=== PATIENT | male | born 1950 | race Caucasian/White ===

== ENCOUNTER → 2019-12-17 | Outpatient (CLI) | payer MEDICARE, OTHER, SELFPAY ==
[2019-12-07 14:23] VITALS: BMI 29.6
[2019-12-17 12:29] LABS: ALB/GLOB Ratio 1.1 RATIO (0.9-2.4); AST(SGOT) 18 U/L (15-37); Alanine Aminotransfer ALT/SGPT 31 U/L (16-61); Albumin, Serum 3.7 g/dL (3.2-5.0); Alkaline Phosphatase 63 U/L (45-117); Anion Gap 6 (5-15); BUN 13 mg/dL (7-18); BUN/Creat Ratio 12.7 RATIO (10-20); Calcium,Total 8.9 mg/dL (8.5-10.1); Chloride 106 mmol/L (98-107); Cholesterol 177 mg/dL (200); Creatinine, Serum 1.02 mg/dL (0.70-1.30); EST Glomerular Filtration Rate 77 mL/min (>60); Est Glom Filt Rate - Afr Amer 94 mL/min (>60); Globulin 3.5 g/dL (2.2-4.2); Glucose 95 mg/dL (74-106); High Density Lipoprotein 48 mg/dL; PSA,Total - Annual Screen 1.59 ng/mL (0.00-4.00); Potassium 3.8 mmol/L (3.5-5.1); Protein, Total 7.2 g/dL (6.4-8.2); Sodium Level 139 mmol/L (136-145); Triglycerides 196 mg/dL; Uric Acid 3.6 mg/dL (3.5-7.2); Very Low Density Lipoprotein 39 mg/dL (5-40)
== END | disposition home or self-care (01) ==
LOC: BIMLAB 10:51
PROVIDERS: PCP Internal Medicine; Referring Provider Internal Medicine; Visit Provider Internal Medicine
DX: E78.5 Hyperlipidemia, unspecified (principal); I10 Essential (primary) hypertension; M10.9 Gout, unspecified; Z12.5 Encounter for screening for malignant neoplasm of prostate
CPT/HCPCS: 36415; 80053; 80061; 84153; 84550; G0103

== ENCOUNTER 2020-06-10 08:42 | Day surgery (SDC) | payer MEDICARE, OTHER, SELFPAY ==
[2020-06-06 13:53] VITALS: BMI 30.5
[2020-06-10] VITALS (8 sets, daily range): BP systolic 100–139; BP diastolic 53–88; PULSE 62–78; RESP 16; TEMP 36.1–36.7; O2SAT 95–98; BMI 31.0
--- NOTE | 2020-06-10 07:12 | HP_ITS ---
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 Is patient in pain?: No Allergies No Known Allergies Allergy (Verified 06/06/20 13:53) Medications lisinopril 10 mg-hydrochlorothiazide 12.5 mg tablet 1 tab PO DAILY #90 tab 03/14/20 [Rx Confirmed 06/06/20] valacyclovir 500 mg tablet 500 mg PO DAILY #90 tab 03/14/20 [Rx Confirmed 06/06/20] simvastatin 20 mg tablet 20 mg PO DAILY #90 tab 04/19/20 [Rx Confirmed 06/06/20] allopurinol 300 mg tablet 300 mg PO DAILY #90 tab 05/02/20 [Rx Confirmed 06/06/20] duloxetine 20 mg capsule,delayed release 20 mg PO DAILY #90 cap 05/23/20 [Rx Confirmed 06/06/20] PFS Medical History (Updated 06/06/20 @ 14:[address] Dar Stallings MD) Recurrent cold sores (Chronic) Gout (Chronic) Essential hypertension (Chronic) Other and unspecified hyperlipidemia (Chronic) Hemorrhoid (Acute) Surgical History (Updated 06/06/20 @ 13:53 by Deisy Coronado) History of colonoscopy (Acute ~2018) History of nasal surgery (Resolved) Tonsillectomy planned (Resolved) vasectomy (Resolved) Family History Other CVA (cerebral vascular accident) Cancer Myocardial infarction Social History (Updated 06/06/20 @ 14:[address] Dar Stallings MD) Smoking Status: Former smoker alcohol intake: never substance use type: does not use HPI HPI HPI: FAY BACA, is a 69 M who presents to the office today for HPI HPI Surgical H&P: Yes HPI: FAY BACA, is a 69 M who presents to the office today for diarrhea. The patient reports he has been having diarrhea for about the past month. He reports he is going several times per day and sometimes over 10 times per day. Patient reports no blood in his stool or abdominal pain. His last colonoscopy was about 3 years ago. Patient reports that he also feels like he is not able to have a bowel movement he is not having incomplete emptying bowel movement. He has no family history of colon cancer. ROS General General: No weight change, appetite, fatigue, colon cancer, breast cancer or weakness HEENT HEENT: No difficulty swallowing, eye injury, eye surgery, swollen glands or hoarseness Endo Endocrine: No thyroid disease, diabetes mellitus, thyroid cancer, Hair loss, heat intolerance or cold intolerance Musc Musculoskeletal: Yes gout; no back problems, arthritis, rheumatoid arthritis or joint pain Cardio Cardiovascular: Yes high blood pressure; no murmur, pacemaker, heart disease, atrial fibrillation, heart attack, heart stent, palpitations, shortness of breat with exertion or chest pain Psych Psychiatric: No depression, anxiety or hearing voices Resp Respiratory: No shortness of breath, No sleep apnea, Yes cough, No COPD, No asthma, No emphysema, No wheezing Gastro Gastrointestinal: Yes abdominal pain, No nausea or vomiting, Yes diarrhea, Yes constipation, No blood in stool, No acid reflux, Yes hemorrhoids, No ulcers, No gallbladder problem, No black,tarry stools Akash Hematologic: No blood thinners, No blood disorders, No bleeding, No anemia, No blood clots Neuro Neurologic: No weakness Exam Const General: cooperative Orientation: alert, oriented x3 Resp Effort & Inspection: normal respiratory effort Auscultation: clear to auscultation bilaterally Cardio Rate: regular rate Rhythm: regular rhythm Heart Sounds: no murmurs GI Inspection: non-distended Palpation: soft, nontender Assessment & Plan Problems 1. Diarrhea, unspecified type R19.7 2. Change in bowel movement R19.8 Plan The patient has been having new onset diarrhea for the past month. He reports going multiple times per day sometimes upwards of 10-11 times per day. The patient also reports he is unable to fully have a bowel movement feels like he is pushing against something. Patient is not having any abdominal pain or blood in his stool. His last colonoscopy was 3 years ago. I recommended colonoscopy with random biopsies. I explained endoscopy in detail to the patient. I explained the risks including but not limited to stroke or heart attack with anesthesia, perforation of the GI tract, bleeding, infection. I explained that any of these could necessitate further emergency surgery. The patient understands and all questions were answered sufficiently. The patient wishes to proceed with procedure. Dar Stallings MD Pager: [facility] [address] [place] [address] [address] [place] [address] Office: Orders Orders: Colonoscopy Today R19.7, R19.8 Coding Level of Care Code Off vis,new,level 3 Diagnoses Diarrhea, unspecified type R19.7 ??Diarrhea type: unspecified type Change in bowel movement R19.8 I have re-examined the patient. There are no clinical changes since date of exam.
[2020-06-10] MEDS: Lactated Ringers 1,000 ML 100 ML IV (09:21)
--- NOTE | 2020-06-10 09:45 | COLBX_PTH ---
PATIENT: FAY BACA LOC: EN U#:[id number] AGE/SX: 69/M ROOM: RE06/10/[address]: Dr. Dar Stallings MD : 1950 BED: DIS: 06/10/2020 SPEC #: [id number] RECD: 06/10/20 10:21 STATUS: RUSTY RUTH #: [id number] GUILLERMO: 06/10/20 09:[address]: Dar Stallings DEPT: SURGICAL PATHOLOGY RECD BY: Heidy Castillo ENTERED: 06/10/20 11:01 SP TYPE: COLON BX OTHR DR: Dr. Raisa Chu MD Tissues: COLON BIOPSY Procedures: Surgery Specimen Level IV HEADER OPERATION: Colonoscopy (MAC) PRE-OP DIAGNOSIS: Diarrhea, changes in bowel movement TISSUE SUBMITTED: Random colonic biopsies MICROSCOPIC DIAGNOSIS Colon, random biopsy: Focal acute colitis. See microscopic description and comment. SJ:jamal 06/13/2020 COMMENT Correlation with clinical, endoscopic findings and appropriate follow up are necessary. MICROSCOPIC DESCRIPTION Slides are reviewed. The specimen shows fragments of colonic mucosa with focal acute and chronic inflammatory cell infiltrate in the lamina propria, cryptitis and crypt abscesses. Granuloma, glandular distortion and ulcerations are not seen. The finding of focal acute colitis is usually an incidental finding. Rarely can it be associated with infectious, self-limited colitis or inflammatory bowel disease. GROSS DESCRIPTION Received in fixative is one container labeled with the patient's name and designated random colon biopsy. The specimen consists of multiple irregular fragments of light eldridge soft tissue that in aggregate measure 2.5 x 1 x 0.1 cm. The specimen is totally submitted in one cassette. / AM:jamal 06/10/20 TC:2 CPT: 43383
--- NOTE | 2020-06-10 10:03 | OP.CCLET_ITS ---
06/10/2020 Raisa Chu [facility] [address] [place] [address] Re : Colonoscopy procedure for Deejay Acosta Dear Dr. Chu This procedure was performed on Wednesday, June 10, 2020. My impressions and recommendations are as follows: Impressions : - Diffuse moderate inflammation was found in the entire examined colon secondary to colitis. Biopsied. Recommendations : - Discharge patient to home. - Resume previous diet. - Continue present medications. - Await pathology results. - Repeat colonoscopy for surveillance based on pathology results. My findings are described in the full procedure note, which is enclosed. If I can be of further assistance, please feel free to contact me at Doctor phone number(s): , Work: . Sincerely, Dar Stallings MD 06/10/2020 10:02:39 AM This report has been signed electronically.
--- NOTE | 2020-06-10 10:03 | OP.COLON_ITS ---
Patient Name: Deejay Acosta Procedure Date: 06/10/2020 9:25 AM Date of : 1950 Age: 69 Procedure: Colonoscopy Indications: Clinically significant diarrhea of unexplained origin Providers: Dar Stallings MD Referring MD: Dar Stallings MD Medicines: Monitored Anesthesia Care Patient Profile: This is a 69 year old male. Refer to note in patient chart for documentation of history and physical. Last Colonoscopy: 3 years ago. Complications: No immediate complications. Estimated blood loss: Minimal. Procedure: Pre-Anesthesia Assessment: - Prior to the procedure, a History and Physical was performed, and patient medications and allergies were reviewed. The patient's tolerance of previous anesthesia was also reviewed. The risks and benefits of the procedure and the sedation options and risks were discussed with the patient. All questions were answered, and informed consent was obtained. Prior Anticoagulants: The patient has taken no previous anticoagulant or antiplatelet agents. After reviewing the risks and benefits, the patient was deemed in satisfactory condition to undergo the procedure. After I obtained informed consent, the scope was passed under direct vision. Throughout the procedure, the patient's blood pressure, pulse, and oxygen saturations were monitored continuously. The Colonoscope was introduced through the anus and advanced to the cecum, identified by appendiceal orifice and ileocecal valve. The colonoscopy was performed without difficulty. The patient tolerated the procedure well. The quality of the bowel preparation was good. Scope In: 9:49:00 AM Scope Withdrawal Time 0 hours 6 minutes 53 seconds Scope Out: 9:59:46 AM Total Procedure Duration Time 0 hours 10 minutes 46 seconds Findings: Diffuse moderate inflammation characterized by congestion (edema) and friability was found in the entire colon. Biopsies were taken with a cold forceps for histology. Impression: - Diffuse moderate inflammation was found in the entire examined colon secondary to colitis. Biopsied. Recommendation: - Discharge patient to home. - Resume previous diet. - Continue present medications. - Await pathology results. - Repeat colonoscopy for surveillance based on pathology results. Procedure Code(s): --- Professional --- 79033, Colonoscopy, flexible; with biopsy, single or multiple Diagnosis Code(s): --- Professional --- K52.9, Noninfective gastroenteritis and colitis, unspecified R19.7, Diarrhea, unspecified CPT copyright 2017 [employer]. All rights reserved. The codes documented in this report are preliminary and upon computer language coder review may be revised to meet current compliance requirements. Dar Stallings MD 06/10/2020 10:02:39 AM This report has been signed electronically. Number of Addenda: 0 Note Initiated On: 06/10/2020 9:25 AM
== END 2020-06-10 10:48 | disposition home or self-care (01) ==
LOC: EN 08:42 → AC 08:42
PROVIDERS: PCP Internal Medicine; Referring Provider Surgery; Visit Provider Surgery
PROC: 0DJD8ZZ Inspection of Lower Intestinal Tract, Via Natural or Artificial Opening Endoscopic (ICD-10-PCS; CPT 45378; principal; 2020-06-10 09:40)
DX: K52.9 Noninfective gastroenteritis and colitis, unspecified (principal); I10 Essential (primary) hypertension; E78.5 Hyperlipidemia, unspecified; Z79.899 Other long term (current) drug therapy; Z20.822 Contact with and (suspected) exposure to COVID-19; Z87.891 Personal history of nicotine dependence
CPT/HCPCS: 45380; 87426; 88305; C9803; J7120; J2405

== ENCOUNTER 2021-05-01 08:35 | Outpatient (CLI) | payer MEDICARE, OTHER, SELFPAY ==
[2021-05-01 12:13] LABS: Absolute Lymphocyte Count 2.55 X10^3/uL (0.83-4.51); Absolute Neutrophil Count 4.6 X10^3/uL (2.0-7.7); Basophil# 0.06 X10^3/uL; Basophil% 0.7 % (0-1); Eosinophil# 0.26 X10^3/uL; Eosinophils% 3.1 % (0-5); Hematocrit 42.8 % (40-54); Hemoglobin 14.8 g/dL (13.0-16.5); Lymphocyte # 2.55 X10^3/ul (0.83-4.51); Lymphocyte % 30.7 % (19-41); Mean Corp Hgb Conc 34.6 g/dL (32-36); Mean Corpuscular Hgb 33.3 pg (27.0-32.0); Mean Corpuscular Volume 96.2 fL (80-94); Mean Platelet Vol. 10.7 fl (6.2-12.0); Monocyte# 0.76 X10^3/uL; Monocyte% 9.2 % (0-10); NRBC Flagged by Analyzer 0 % (0-5); Neutrophil # 4.63 X10^3/uL (2.7-7.7); Neutrophil % 55.8 % (47-70); Platelet Count 222 K/mm3 (150-450); RBC Distribution Width CV 13.3 % (11.6-14.6); RBC Distribution Width SD 47.1 fl (35.1-43.9); Red Blood Count 4.45 M/mm3 (4.6-6.2); White Blood Count 8.3 K/mm3 (4.4-11.0)
[2021-05-01 12:28] LABS: Uric Acid 3.8 mg/dL (3.5-7.2)
[2021-05-01 12:31] LABS: Vitamin D,25 Hydroxy 9.2 ng/mL
[2021-05-01 12:38] LABS: AST(SGOT) 30 U/L (15-37); Alanine Aminotransfer ALT/SGPT 56 U/L (16-61); Albumin, Serum 3.7 g/dL (3.2-5.0); Alkaline Phosphatase 62 U/L (45-117); Anion Gap 6 (5-15); BUN 15 mg/dL (7-18); BUN/Creat Ratio 13.4 RATIO (10-20); Calcium,Total 9.1 mg/dL (8.5-10.1); Chloride 109 mmol/L (98-107); Cholesterol 152 mg/dL (200); Creatinine, Serum 1.12 mg/dL (0.70-1.30); EST Glomerular Filtration Rate 69 mL/min (>60); Est Glom Filt Rate - Afr Amer 84 mL/min (>60); Globulin 3.6 g/dL (2.2-4.2); Glucose 109 mg/dL (74-106); High Density Lipoprotein 54 mg/dL; PSA,Total - Annual Screen 1.64 ng/mL (0.00-4.00); Potassium 3.8 mmol/L (3.5-5.1); Protein, Total 7.3 g/dL (6.4-8.2); Sodium Level 140 mmol/L (136-145); Thyroid Stim Hormone (TSH) 2.22 uIU/mL (0.358-3.74); Triglycerides 88 mg/dL; Very Low Density Lipoprotein 18 mg/dL (5-40)
== END 2021-05-01 23:59 | disposition home or self-care (01) ==
LOC: BIMLAB 08:37
PROVIDERS: PCP Internal Medicine; Referring Provider Internal Medicine; Visit Provider Internal Medicine
DX: Z12.5 Encounter for screening for malignant neoplasm of prostate (principal); I10 Essential (primary) hypertension; E78.5 Hyperlipidemia, unspecified; E55.9 Vitamin D deficiency, unspecified; M10.9 Gout, unspecified
CPT/HCPCS: 36415; 80053; 80061; 82306; 84153; 84443; 84550; 85025; G0103

== ENCOUNTER → 2022-04-19 | Outpatient (CLI) | payer MEDICARE, OTHER, SELFPAY ==
[2022-04-19 12:22] LABS: Absolute Lymphocyte Count 2.37 X10^3/uL (0.83-4.51); Absolute Neutrophil Count 5.7 X10^3/uL (2.0-7.7); Basophil# 0.06 X10^3/uL; Basophil% 0.7 % (0-1); Eosinophil# 0.22 X10^3/uL; Eosinophils% 2.4 % (0-5); Hematocrit 43.9 % (40-54); Lymphocyte # 2.37 X10^3/ul (0.83-4.51); Lymphocyte % 25.8 % (19-41); Mean Corp Hgb Conc 34.2 g/dL (32-36); Mean Corpuscular Hgb 32.8 pg (27.0-32.0); Mean Corpuscular Volume 96.1 fL (80-94); Mean Platelet Vol. 10.7 fl (6.2-12.0); Monocyte# 0.79 X10^3/uL; Monocyte% 8.6 % (0-10); NRBC Flagged by Analyzer 0 % (0-5); Neutrophil # 5.71 X10^3/uL (2.7-7.7); Neutrophil % 62.2 % (47-70); Platelet Count 229 K/mm3 (150-450); RBC Distribution Width CV 13.2 % (11.6-14.6); RBC Distribution Width SD 46.6 fl (35.1-43.9); Red Blood Count 4.57 M/mm3 (4.6-6.2); White Blood Count 9.2 K/mm3 (4.4-11.0)
[2022-04-19 12:55] LABS: Vitamin D,25 Hydroxy 12.7 ng/mL
[2022-04-19 13:00] LABS: ALB/GLOB Ratio 1.1 RATIO (0.9-2.4); AST(SGOT) 28 U/L (15-37); Alanine Aminotransfer ALT/SGPT 50 U/L (16-61); Albumin, Serum 3.9 g/dL (3.2-5.0); Alkaline Phosphatase 61 U/L (45-117); Anion Gap 9 (5-15); BUN 17 mg/dL (7-18); BUN/Creat Ratio 13.5 RATIO (10-20); Calcium,Total 9.2 mg/dL (8.5-10.1); Chloride 104 mmol/L (98-107); Cholesterol 184 mg/dL (200); Creatinine, Serum 1.26 mg/dL (0.70-1.30); EST Glomerular Filtration Rate 60 mL/min (>60); Est Glom Filt Rate - Afr Amer 73 mL/min (>60); Globulin 3.7 g/dL (2.2-4.2); Glucose 117 mg/dL (74-106); High Density Lipoprotein 59 mg/dL; Potassium 3.7 mmol/L (3.5-5.1); Protein, Total 7.6 g/dL (6.4-8.2); Sodium Level 139 mmol/L (136-145); Triglycerides 132 mg/dL; Very Low Density Lipoprotein 26 mg/dL (5-40)
== END | disposition home or self-care (01) ==
LOC: BIMLAB 09:08
PROVIDERS: PCP Internal Medicine; Referring Provider Internal Medicine; Visit Provider Internal Medicine
DX: I10 Essential (primary) hypertension (principal); E78.5 Hyperlipidemia, unspecified; E55.9 Vitamin D deficiency, unspecified; Z12.5 Encounter for screening for malignant neoplasm of prostate
CPT/HCPCS: 36415; 80053; 80061; 82306; 85025

== ENCOUNTER 2022-07-20 13:43 | Observation (INO) | payer MEDICARE, OTHER, SELFPAY ==
[2022-07-20] VITALS (7 sets, daily range): BP systolic 148–166; BP diastolic 78–90; PULSE 74–103; RESP 16–20; TEMP 35.9–36.6; O2SAT 95–99; BMI 31.8; BMI 31.3
--- NOTE | 2022-07-20 13:48 | EKG12_ITS ---
Test Reason : STROKE Blood Pressure : / mmHG Vent. Rate : 071 BPM Atrial Rate : 071 BPM P-R Int : 162 ms QRS Dur : 146 ms QT Int : 392 ms P-R-T Axes : 028 -80 018 degrees QTc Int : 425 ms Normal sinus rhythm Right bundle branch block Left anterior fascicular block Bifascicular block Abnormal ECG Confirmed by SERGE KELLY, PADMINI ([id number]), photo editor BEATRIZ LINN ([id number]) on 07/23/2022 11:29:20 AM Referred By: Confirmed By:ROSEANN VALENTINE MD
--- NOTE | 2022-07-20 13:48 | CT_ITS ---
STUDY: CT HEAD STROKE PROTOCOL W/O CONTRAST INJECTION REASON FOR EXAM: Male, 71 years old. Neuro deficit, acute, stroke suspected RADIATION DOSAGE (If Supplied By Facility): CTDIvol = ( 44.99 ) mGy, DLP = ( 846.73 ) mGycm TECHNIQUE: Transaxial CT imaging of the brain was performed without administration of intravenous contrast material. Individualized dose optimization techniques were used for this CT. COMPARISON: No relevant priors. FINDINGS: Normal soft tissue structures. Normal calvarium. Normal size ventricles and extra-axial spaces for the patient''s age. Normal white matter tracts of the cerebral hemispheres. Normal basal ganglia and thalami. Normal brainstem. Normal cerebellum. There is no intracranial hemorrhage. There are no findings of an acute ischemic infarction. Atherosclerotic plaque formation of the cavernous portions of the internal carotid arteries bilaterally as well as the vertebral arteries.. Normal visualized paranasal sinuses. ASPECT score: 10 CT/STROKE Brain/Head without Cont IMPRESSION: Normal unenhanced CT scan of the brain. N.B. : The above Results were Read Back by Darrel Rayo MD to Ho Farley and understanding confirmed on 07/20/2022 14:04:26 (ET). Electronically Signed: Darrel Rayo MD at 14:05 EDT ,
--- NOTE | 2022-07-20 13:53 | EDS_ITS ---
HPI History of Present Illness Chief Complaint: Neuro S/Sx Detail of Chief Complaint: Expressive aphasia, numbness right upper extremity and slurring of his word Informant: patient and family Onset/Context/Timing Onset: Hours (Onset 1248) Context: Sudden Onset Timing: Intermittent Quality and Location: Positive for Expressive Aphasia Onset: 1248 Current Severity: Mild Maximum Severity: Moderate Worsened by: Nothing Relieved by: Not applicable Associated Symptoms Associated Symptoms: Positive for Headache; Negative for Nausea, Vomiting or Chest Pain Narrative Narrative: Patient is a 71-year-old male with history of hypertension and gout who presents with trouble speaking. He states he was reading and unable to speak to the gentleman he was talking to. He also complained of numbness right upper extremity and when he was able to speak his words were slurred. He was brought in by his sister. His sister states he has had a couple of these episodes in the past several years but never sought medical attention. Review of prior records indicates he has history of hypercholesterolemia. He is on simvastatin. Prior similar symptoms: Yes Recent Illness/Hospitalization: No PFSH PFSH Medical History Essential hypertension Gout Hemorrhoid Other and unspecified hyperlipidemia Recurrent cold sores Home Medications simvastatin 20 mg tablet 20 mg PO DAILY #90 tabs 02/03/21 [Rx Last Taken Unknown] allopurinol 300 mg tablet 300 mg PO DAILY #90 tabs 11/22/21 [Rx Last Taken Unknown] duloxetine 20 mg capsule,delayed release 20 mg PO DAILY #90 caps 11/22/21 [Rx Last Taken Unknown] lisinopril 10 mg-hydrochlorothiazide 12.5 mg tablet 1 tab PO DAILY #90 tabs 05/22/22 [Rx Last Taken Unknown] valacyclovir 500 mg tablet 500 mg PO DAILY #90 tabs 05/22/22 [Rx Last Taken Unknown] Allergy/AdvReac Type Severity Reaction Status Date / Time Seasonal Allergies: Uncoded Allergy Mild other Verified 04/25/22 13:07 Family History Other CVA (cerebral vascular accident) Cancer Myocardial infarction Surgical History History of colonoscopy (~2017) History of nasal surgery Tonsillectomy planned vasectomy Social History (Updated 07/20/22 @ 13:[address] Ho Farley MD) household members: none Smoking Status: Former smoker alcohol intake: never substance use type: does not use ROS ROS ED Constitutional Constitutional ED: Denies chills, fever(s), subjective, sweats or weakness Eyes Eyes: Denies blurry vision, change in vision or diplopia ENT ENT ED: Denies ear pain, rhinorrhea or sore throat Cardiovascular Cardiovascular: Denies chest pain, palpitations, paroxysmal nocturnal dyspnea or racing heartbeat Respiratory/Chest Respiratory/Chest: Denies cough, dyspnea, dyspnea on exertion or paroxysmal nocturnal dyspnea Gastrointestinal Gastrointestinal: Denies abdominal pain, constipation, diarrhea, melena, nausea or vomiting Genitourinary Genitourinary ED: Denies dysuria, hematuria or urinary frequency Musculoskeletal Musculoskeletal: Denies arthralgias, back pain, myalgias or neck pain Integumentary Denies abscess, Abrasions or rash Neurologic Neurologic: Reports headache(s) and paresthesias; Denies weakness Psychiatric Psychiatric: Denies anxiety or depression Endocrine Endocrinology: Denies polydipsia, polyphagia or polyuria Hematologic/Lymphatic Hematologic/Lymphatic: Denies easy bleeding or easy bruising EXAM Physical Exam Const Vital Signs: 07/20/22 13:44 07/20/22 13:48 07/20/22 13:48 Temperature 96.6 F L Temperature Source Temporal Pulse Rate 97 74 Respiratory Rate 18 18 Blood Pressure 159/80 H 149/90 H Blood Pressure Mean 106 109 Pulse Ox 95 99 Oxygen Delivery Method Room Air Room Air Room Air 07/20/22 14:03 Temperature Temperature Source Pulse Rate 103 H Respiratory Rate 20 H Blood Pressure 148/88 H Blood Pressure Mean 108 Pulse Ox 99 Oxygen Delivery Method Room Air Positive well nourished and well developed General Appearance ED: well developed and NAD HEENT Reports moist mucous membranes atraumatic and trauma Nose: other Other Details: Nares patent. Posterior pharynx is normal. No deviation tongue with protrusion. Eyes PERRL and EOMs intact bilaterally Eyes Narrative: There is no nystagmus General Eye ED: Negative for pale conjunctiva or scleral icterus Neck no lymphadenopathy, supple and no JVD Resp normal respiratory effort and clear to auscultation bilaterally Cardio no murmurs Rate: regular rate Rhythm: regular rhythm Heart Sounds: S1 normal and S2 normal GI normal to inspection, nondistended, normoactive bowel sounds, soft to palpation, non-tender, non-distended and no masses Back/Spine no CVA tenderness Extremity normal to inspection General Extremety ED: Negative for deformity, edema, tenderness or other findings General Extremity: Negative for deformity, edema or other findings Neuro oriented x3, CN's II-XII intact bilaterally and no sensory deficits noted Juanito Coma Scale: document GCS findings Spontaneous Obeys Commands Oriented 15 Sensorium / Orientation: alert Speech: Negative for speech normal Sensory Exam: No sensory level loss detected Motor Exam: strength 5/5 throughout Psych mental status grossly normal Skin no wounds General Skin Exam: Negative for jaundice Lesions: no lesions Rashes: no rashes NIHSS NIHSS Initial: 1a Level of Consciousness: 0 1b LOC Questions (Score 2 if aphasic/stupor): 0 1c LOC Commands (Only score 1st attempt): 0 2 Best Gaze (If aphasic, use reflexive mvmts.): 0 3 Visual: 0 4 Facial Palsy: 0 5 Motor Arm Right (UN = amputation/fusion): 0 5 Motor Arm Left: 0 6 Motor Leg Right: 0 6 Motor Leg Left: 0 7 Limb ataxia (Only + if out of proportion): 0 8 Sensory (Aphasia/stupor=0 or 1, coma=2): 0 9 Best Language: 0 10 Dysarthria (mute, coma=2, intubated=UN): 1 11 Extinction and Inattention (only scored if +): 0 Total Score: 1 MDM MDM MDM Narrative Medical decision making narrative: Patient presents with expressive aphasia. Expressive aphasia has resolved. Occasionally he will slower work. It is very minimal. That is the only neurologic finding. Because he is complaining of head discomfort need to also consider possibility of intracranial bleed. Stroke order set was initiated including CTA since and expressive aphasia is a significant deficit. Patient blood pressure slightly elevated. Will permit permissive hypertension. History & Record Review Discussion w/independent historian: Patient and Family Additional record(s) reviewed:: Prior outpatient record (For hypertension, sinusitis and reviewed MRI of sinuses), Prior ED visit and Prior labs Lab Data Labs: Laboratory Results - last 24 hr 07/20/22 07/20/22 07/20/22 13:52 13:55 13:55 WBC 9.9 RBC 4.10 L Hgb 13.7 Hct 40.5 MCV 98.8 H MCH 33.4 H MCHC 33.8 RDW Std Deviation 47.5 H RDW Coeff of Tanner 13.1 Plt Count 247 MPV 9.7 Immature Gran % (Auto) 0.400 Neut % (Auto) 64.3 Lymph % (Auto) 26.2 Tillman % (Auto) 7.2 Eos % (Auto) 1.5 Baso % (Auto) 0.4 Absolute Neuts (auto) 6.4 Absolute Lymphs (auto) 2.59 Nucleated RBC % 0 PT 12.5 INR 0.9 APTT 26.7 Sodium Potassium Chloride Carbon Dioxide Anion Gap BUN Creatinine Estim Creat Clear Calc Est GFR (MDRD) Af Amer Est GFR (MDRD) Non-Af BUN/Creatinine Ratio Glucose Calcium Troponin I High Sens POC Glucose 138 H 07/20/22 13:55 WBC RBC Hgb Hct MCV MCH MCHC RDW Std Deviation RDW Coeff of Tanner Plt Count MPV Immature Gran % (Auto) Neut % (Auto) Lymph % (Auto) Tillman % (Auto) Eos % (Auto) Baso % (Auto) Absolute Neuts (auto) Absolute Lymphs (auto) Nucleated RBC % PT INR APTT Sodium 135 L Potassium 3.4 L Chloride 101 Carbon Dioxide 29.0 Anion Gap 5 BUN 13 Creatinine 1.16 Estim Creat Clear Calc 56.19 Est GFR (MDRD) Af Amer 80 Est GFR (MDRD) Non-Af 66 BUN/Creatinine Ratio 11.2 Glucose 136 H Calcium 9.6 Troponin I High Sens 10 POC Glucose Radiography Diagnostic Testing: Clinical Impression(s) from Imaging Studies Brain CT 07/20/22 13:48 IMPRESSION: Normal unenhanced CT scan of the brain. N.B. : The above Results were Read Back by Darrel Rayo MD to Ho Farley and understanding confirmed on 07/20/2022 14:04:26 (ET). Electronically Signed: Darrel Rayo MD at 14:05 EDT , ADDENDUM: 07/20/22 1412 IMPRESSION: Normal unenhanced CT scan of the brain. N.B. : The above Results were Read Back by Darrel Rayo MD to Ho Farley and understanding confirmed on 07/20/2022 14:04:26 (ET). Electronically Signed: Darrel Rayo MD at 14:05 EDT Reading Location ID and State: [facility] / [place] , Service support , Head/Neck CTA 07/20/22 13:55 IMPRESSION: Mild degree of calcific plaques at the origin of the right and left internal carotid arteries. N.B. : The above Results were Read Back by Darrel Rayo MD to Hoabdullahi Farley and understanding confirmed on 07/20/2022 14:20:02 (ET). Electronically Signed: Darrel Rayo MD at 14:21 EDT Reading Location ID and State: [facility] / [place] , Service support , ADDENDUM: 07/20/22 1428 IMPRESSION: Mild degree of calcific plaques at the origin of the right and left internal carotid arteries. N.B. : The above Results were Read Back by Darrel Rayo MD to Hoabdullahi Farley and understanding confirmed on 07/20/2022 14:20:02 (ET). Electronically Signed: Darrel Rayo MD at 14:21 EDT , Management Discussion w/another healthcare provider: Hospitalist (Dr. Cortés was made aware of history physical findings and recommendation by [facility] neurologist) and Director Child (Spoke with Dr. De Jesus neurologist [facility]. Recommended MRI, A1c, cholesterol, aspirin and echo.) Stroke Documentation Questions Stroke Team Activated: Yes Reviewed Inclusion/Exclusion criteria: Yes IV Thrombolytic Administered: No (NIH 0) No contraindications from thrombolytic administration: No Discharge Plan Triage Chief Complaint: Neuro S/Sx ED Provider: Farley,Ho Dx/Rx/DC Orders Clinical Impression: Expressive aphasia, Essential hypertension, Brain TIA Prescriptions: No Action simvastatin 20 mg tablet 20 mg PO DAILY Qty: 90 3RF duloxetine 20 mg capsule,delayed release(DR/EC) 20 mg PO DAILY Qty: 90 3RF allopurinol 300 mg tablet 300 mg PO DAILY Qty: 90 3RF lisinopril-hydrochlorothiazide 10-12.5 mg tablet 1 tab PO DAILY Qty: 90 3RF valacyclovir 500 mg tablet 500 mg PO DAILY Qty: 90 3RF Primary Care Provider: Raisa Chu Referrals: Raisa Chu MD [Primary Care Provider] -
--- NOTE | 2022-07-20 13:55 | CT_ITS ---
STUDY: CTA HEAD AND NECK WITH CONTRAST REASON FOR EXAM: Male, 71 years old. Stroke work-up, expressive aphasia, numbness right RADIATION DOSAGE (If Supplied By Facility): CTDIvol = ( 18.56 ) mGy, DLP = ( 840.39 ) mGycm TECHNIQUE: CT angiography was performed with a multi-detector CT scanner. Data acquisition was obtained from the skull base through the vertex following intravenous administration of 100ML OF ISOVUE 370. MIP images were reconstructed from the axial data set. Post-processing of the angiographic images was performed, with multiplanar reformation and 3D reconstruction. Individualized dose optimization techniques were used for this CT. COMPARISON: No relevant priors. FINDINGS: Normal bilateral petrous carotid arteries. There is calcified plaque formation of the right cavernous carotid artery, without a cross-sectional luminal stenosis. There is calcified plaque formation of the left cavernous carotid artery, without a cross-sectional luminal stenosis. Normal right A1 segments of the anterior cerebral artery. There is hypoplastic development of the left A1 segment of the anterior cerebral arteries with an atretic but intact artery. Normal intact anterior communicating artery (ACOM). Normal bilateral A2 segments of the anterior cerebral arteries. Normal right M1 and M2 segments of the middle cerebral arteries, with a normal M1 bifurcation. Normal left M1 and M2 segments of the middle cerebral arteries, with a normal M1 bifurcation. Normal right posterior communicating artery (PCOM). Normal left posterior communicating artery (PCOM). Normal bilateral vertebral arteries. Normal basilar artery with a normal basilar bifurcation. The visualized bilateral superior cerebellar (SCA) arteries are normal. Normal bilateral P1, P2 and visualized P3 segments of the posterior cerebral arteries. There is no demonstrated aneurysm of the [place]. There is no demonstrated abnormality of the visualized brain. AORTIC ARCH: There is atherosclerotic calcific plaque formation of the aortic arch and great vessels arising from the aortic arch, without a hemodynamically significant stenosis. There is a normal origin of the brachiocephalic, left common carotid, and left subclavian arteries. RIGHT CAROTID ARTERIES: Normal right common carotid artery (CCA). Normal right common carotid bulb. There is minimal atherosclerotic plaque formation of the origin of the right internal carotid artery with less than 50% cross sectional diameter stenosis. Normal visualized cervical portion of the right internal carotid artery. Normal origin of the right external carotid artery (ECA). LEFT CAROTID ARTERIES: Normal left common carotid artery (CCA). Normal left common carotid bulb. There is minimal atherosclerotic plaque formation of the origin of the left internal carotid artery with less than 50% cross sectional diameter stenosis. Normal visualized cervical portion of the left internal carotid artery. Normal origin of the left external carotid artery (ECA). VERTEBRAL ARTERIES: There is enhancement within the bilateral vertebral arteries with a small left vertebral artery, and a dominant right vertebral artery. CT/STROKE CTA Head AND Neck W/Con IMPRESSION: Mild degree of calcific plaques at the origin of the right and left internal carotid arteries. N.B. : The above Results were Read Back by Darrel Rayo MD to [facility] and understanding confirmed on 07/20/2022 14:20:02 (ET). Electronically Signed: Darrel Rayo MD at 14:21 EDT ,
[2022-07-20 14:01] LABS: Absolute Lymphocyte Count 2.59 X10^3/uL (0.83-4.51); Absolute Neutrophil Count 6.4 X10^3/uL (2.0-7.7); Basophil# 0.04 X10^3/uL; Basophil% 0.4 % (0-1); Eosinophil# 0.15 X10^3/uL; Eosinophils% 1.5 % (0-5); Hematocrit 40.5 % (40-54); Hemoglobin 13.7 g/dL (13.0-16.5); Lymphocyte # 2.59 X10^3/ul (0.83-4.51); Lymphocyte % 26.2 % (19-41); Mean Corp Hgb Conc 33.8 g/dL (32-36); Mean Corpuscular Hgb 33.4 pg (27.0-32.0); Mean Corpuscular Volume 98.8 fL (80-94); Mean Platelet Vol. 9.7 fl (6.2-12.0); Monocyte# 0.71 X10^3/uL; Monocyte% 7.2 % (0-10); NRBC Flagged by Analyzer 0 % (0-5); Neutrophil # 6.37 X10^3/uL (2.7-7.7); Neutrophil % 64.3 % (47-70); Platelet Count 247 K/mm3 (150-450); RBC Distribution Width CV 13.1 % (11.6-14.6); RBC Distribution Width SD 47.5 fl (35.1-43.9); White Blood Count 9.9 K/mm3 (4.4-11.0)
[2022-07-20 14:10] LABS: Bedside Glucose 138 mg/dL (74-106)
[2022-07-20 14:11] LABS: International Normalized Ratio 0.9; Prothrombin Time (Protime)PT. 12.5 SECONDS (11.7-14.9)
[2022-07-20 14:12] LABS: Partial Thromboplast Time 26.7 Seconds (24.1-36.2)
[2022-07-20 14:19] LABS: Anion Gap 5 (5-15); BUN 13 mg/dL (7-18); BUN/Creat Ratio 11.2 RATIO (10-20); Calcium,Total 9.6 mg/dL (8.5-10.1); Chloride 101 mmol/L (98-107); Creatinine, Serum 1.16 mg/dL (0.70-1.30); EST Glomerular Filtration Rate 66 mL/min (>60); Est Glom Filt Rate - Afr Amer 80 mL/min (>60); Estimated Creatinine Clearance 56.19 ml/min; Glucose 136 mg/dL (74-106); Potassium 3.4 mmol/L (3.5-5.1); Sodium Level 135 mmol/L (136-145); Troponin-I HS 10 pg/mL (3.0-78.0)
--- NOTE | 2022-07-20 14:53 | RAD_ITS ---
STUDY: X-RAY CHEST REASON FOR EXAM: Male, 71 years old. Neuro deficit, acute, stroke suspected TECHNIQUE: Single AP portable view of the chest. COMPARISON: None. FINDINGS: EKG electrodes are seen. The lungs are clear and expanded. There is no demonstrated pleural abnormality. Mild cardiomegaly. Normal mediastinum and paddy. Normal visualized pulmonary arteries. Normal visualized aortic arch and descending thoracic aorta. There are diffuse degenerative changes of the visualized thoracic spine. Normal visualized ribs, clavicles, and shoulders. There is no demonstrated abnormality of the visualized soft tissue structures of the upper abdomen. RAD/Chest 1 View IMPRESSION: Mild cardiomegaly. The lungs are clear. Electronically Signed: Darrel Rayo MD at 15:04 EDT ,
--- NOTE | 2022-07-20 14:58 | ECHOD_ITS ---
Reason For Study: TIA/STROKE Procedure This was a 2D Doppler, Color Flow transthoracic echocardiogram. Exam performed portable in patient room. Left Ventricle Normal LV size. The estimated ejection fraction is 65 %. Normal diastology for age. No regional wall motion abnormalities noted. Right Ventricle Normal RV size. Normal systolic function. Atria Normal left atrium. Normal right atrium. No doppler evidence for ASD. Bubble contrast study negative for right to left interatrial shunt. Mitral Valve There is no mitral valve stenosis. Mild (1+) mitral valve insufficiency. Tricuspid Valve There is no tricuspid stenosis. Unable to estimate RV systolic pressure due to insufficient tricuspid regurgitant envelope. Aortic Valve Trisinus/trileaflet aortic valve. There is no aortic stenosis. Trivial aortic valve insufficiency. Pulmonic Valve There is no pulmonic valvular stenosis. No pulmonic valve insufficiency. Great Vessels Normal aortic root. Pericardium/Pleural No pericardial effusion. Medication Performed a rapid injection of agitated mix of 9 cc saline and 1cc air to assess for atrial septal defect. MMode/2D Measurements & Calculations LVIDd: 4.6 cm IVSd: 1.4 cm Ao root diam: 3.9 cm LVIDs: 2.8 cm LVPWd: 1.8 cm FS: 39.2 % LAV(MOD-bp): 32.4 ml LVAd ap4: 23.2 cm2 SV(MOD-sp4): 32.5 ml LAV(MOD-bp) Indexed: 15.9 ml/m2 LVLd ap4: 7.9 cm LAV(MOD-sp2): 25.5 ml EDV(MOD-sp4): 57.1 ml LAV(MOD-sp4): 35.4 ml EDV(sp4-el): 58.0 ml LVAs ap4: 13.9 cm2 LVLs ap4: 7.2 cm ESV(MOD-sp4): 24.6 ml ESV(sp4-el): 22.5 ml EF(MOD-sp4): 56.9 % EF(sp4-el): 61.2 % SV(sp4-el): 35.5 ml LA A4 area: 15.4 cm2 LA dimension(2D): 3.7 cm RA A4 area: 14.3 cm2 Time Measurements MV dec time: 0.24 sec Doppler Measurements & Calculations MV E max troy: 59.2 cm/sec Lat Peak E' Troy: 10.4 cm/sec Med Peak E' Troy: 8.2 cm/sec MV A max troy: 68.9 cm/sec E/E' lat: 5.7 E/E' med: 7.3 MV E/A: 0.86 MV V2 max: 68.8 cm/sec MV dec slope: 249.1 cm/sec2 Ao V2 max: 120.7 cm/sec MV max P.9 mmHg Ao max P.8 mmHg MV V2 mean: 44.0 cm/sec Ao V2 mean: 85.3 cm/sec MV mean P.86 mmHg Ao mean P.3 mmHg MV V2 VTI: 24.2 cm Ao V2 VTI: 27.6 cm AV (velocity ratio): 0.77 AI max troy: 458.6 cm/sec LV V1 max: 101.5 cm/sec PA V2 max: 77.0 cm/sec AI max P.3 mmHg LV V1 max P.1 mmHg PA V2 mean: 53.1 cm/sec AI dec slope: 188.1 cm/sec2 LV V1 mean P.2 mmHg AI P1/2t: 714.0 msec LV V1 mean: 69.3 cm/sec LV V1 VTI: 21.3 cm TR max troy: 238.8 cm/sec TR max P.8 mmHg ECHO/Echo Complete Interpretation Summary The estimated ejection fraction is 65 %. Mild (1+) mitral valve insufficiency. Trivial aortic valve insufficiency. Ordering Physician: Kala Cortés Referring Physician: Raisa Chu M.D. Performed By: Tessa Moctezuma RCS
--- NOTE | 2022-07-20 14:58 | MRI_ITS ---
STUDY: MRI BRAIN WITHOUT CONTRAST REASON FOR EXAM: Male, 71 years old. tia TECHNIQUE: Standardized multiplanar fat and water weighted pulse sequences were obtained. COMPARISON: No relevant prior imaging available for comparison. HEMISPHERES, CEREBELLUM AND BRAINSTEM: There is mild chronic microvascular ischemic change in the periventricular white matter more moderate adjacent to the atrium of the lateral ventricles. In addition on the FLAIR and inversion recovery series there are multiple foci of increased signal intensity of the 5 mm in diameter throughout the frontal henriquez radiata and centrum semiovale. 1. The cerebral parenchyma, ventricular system, subarachnoid spaces have normal configuration and density. There is a normal gyral pattern. There is normal covington/white differentiation. No midline shift.. 2. The hemispheric white matter has normal appearance. 3. No intraparenchymal mass, hemorrhage, or acute territorial infarct. 4. The cerebellum, brainstem, basilar and suprasellar cisterns have normal appearance. No Chiari malformation. PITUITARY: Infundibulum and pituitary have normal configuration. Midline structures appear normal. CSF SPACES: Appropriate for age. No hydrocephalus. Basal cisterns are patent. VESSELS: 1. There are normal flow voids noted in the great vessels at the skull base ORBITS AND PARANASAL SINUSES: 1. Both globes, extraocular muscles, optic nerves and retrobulbar fat appear unremarkable. 2. Paranasal sinuses are clear. BONY ELEMENTS: Bony elements of the cranial vault, facial skeleton and skull base have normal appearance. SCALP AND SOFT TISSUES: Normal appearance of the soft tissues of the scalp and the visualized face OTHER: None MRI/Brain without Contrast IMPRESSION: Mild to moderate chronic microvascular ischemic change detailed above. Electronically Signed: Ezra Prather MD, TAVO at 19:31 EDT ,
--- NOTE | 2022-07-20 15:04 | PCM.HP.STD ---
HPI - General General Date of Admission: 07/20/22 Date of Service: 07/20/22 Chief Complaint: Slurred speech/expressive aphasia/right upper extremity paresthesias HPI Narrative FAY BACA, is a 71 M who presented to the emergency department at [facility] on 07/20/2022 with sudden onset expressive aphasia/dysarthria/right upper extremity paresthesias. Patient states that about 10 years ago he had similar issues with his speech and he was told it was a TIA but nothing further was done. Since that time he has had several more episodes and he states he gets about to a year in the last 5 years. This is the first time he is ever had upper extremity paresthesias associated however. With the new symptom he decided to present to the emergency department. Symptoms started about 1245 today and lasted about 1 hour. The symptoms had resolved at the time of my evaluation. He denied any other associated symptoms and had been feeling well up until that point this afternoon. Stroke team was called and he was evaluated by the stroke neurologist who recommended inpatient work-up for TIA. Vital signs on presentation demonstrated temperature of 96.6, heart rate 97, blood pressure 159/80, respiratory rate was 18, and oxygen saturation was 95% on room air. CBC was unremarkable. Coags are normal. Chemistry panel shows mild hyponatremia with a sodium of 135, hypokalemia with a potassium of 3.4, but was otherwise unremarkable. Glucose was 136. This is nonfasting. Troponin was 10. EKG is still pending at the time of my evaluation. CT of the brain showed a normal nonenhanced image of the brain. CTA of the head and neck demonstrated mild degree of calcific plaque at the origin of the right and left internal carotid arteries that was estimated at less than 50%. Chest x-ray was unremarkable. [facility] Medical History Essential hypertension Gout Hemorrhoid Other and unspecified hyperlipidemia Recurrent cold sores Home Medications simvastatin 20 mg tablet 20 mg PO DAILY #90 tabs 02/03/21 [Rx Last Taken Unknown] allopurinol 300 mg tablet 300 mg PO DAILY #90 tabs 11/22/21 [Rx Last Taken Unknown] duloxetine 20 mg capsule,delayed release 20 mg PO DAILY #90 caps 11/22/21 [Rx Last Taken Unknown] lisinopril 10 mg-hydrochlorothiazide 12.5 mg tablet 1 tab PO DAILY #90 tabs 05/22/22 [Rx Last Taken Unknown] valacyclovir 500 mg tablet 500 mg PO DAILY #90 tabs 05/22/22 [Rx Last Taken Unknown] Allergy/AdvReac Type Severity Reaction Status Date / Time Seasonal Allergies: Uncoded Allergy Mild other Verified 04/25/22 13:07 Family History Other CVA (cerebral vascular accident) Cancer Myocardial infarction Surgical History History of colonoscopy (~2018) History of nasal surgery Tonsillectomy planned vasectomy Social History household members: none Smoking Status: Former smoker alcohol intake: current details: 1 drink nightly of either wine or hard liquor substance use type: does not use ROS Constitutional Constitutional: Denies anorexia, change in weight, chills, fatigue, fever(s), malaise, night sweats, weakness or other Eyes Eyes: Denies blurry vision, change in eye color, change in vision, discharge from eye(s), double vision, erythema, eye pain, loss of vision or other ENT HEENT: Denies abnormal hearing, dysphagia, ear pain, epistaxis, headache(s), hearing loss, nasal congestion, nasal discharge, post nasal drip, sinus pressure, sore throat or other Cardiovascular Cardiovascular: Denies chest pain, claudication, dyspnea on exertion, edema, lightheadedness, orthopnea, palpitations, paroxysmal nocturnal dyspnea, rapid heart rate, syncope or other Respiratory/Chest Respiratory/Chest: Reports shortness of breath at rest; Denies cough, dyspnea, excessive phlegm production, hemoptysis, productive cough, shortness of breath with exertion, wheezing or other Gastrointestinal Gastrointestinal: Denies abdominal pain, coffee ground emesis, constipation, diarrhea, dyspepsia, hematemesis, hematochezia, loose stools, melena, nausea, vomiting or other Genitourinary Genitourinary: Denies burning urination, difficulty urinating, dysuria, hematuria, nocturia, urinary frequency, urinary hesitancy, urinary incontinence, urinary urgency or other Musculoskeletal Musculoskeletal: Denies arthralgias, back pain, joint pain, joint stiffness, joint swelling, myalgias, neck pain or other Neurologic Neurologic: Reports abnormal speech and paresthesias RUE Psychiatric Psychiatric: Denies anxiety, depression, homicidal ideation, suicidal ideation or other Endocrine Endocrinology: Denies change in body appearance, cold intolerance, excessive sweating, heat intolerance, polydipsia, polyuria or other Hematologic/Lymphatic Hematologic/Lymphatic: Denies anemia, easy bleeding, easy bruising, lymphadenopathy or other Allergic/Immunologic Allergic/Immunologic: Denies rhinitis, hives, eczemia, asthma or other Vital Signs Vital Signs Vital Signs: 07/20/22 13:44 07/20/22 13:48 07/20/22 13:48 Temperature 96.6 F L Temperature Source Temporal Pulse Rate 97 74 Respiratory Rate 18 18 Blood Pressure 159/80 H 149/90 H Blood Pressure Mean 106 109 Pulse Ox 95 99 Oxygen Delivery Method Room Air Room Air Room Air 07/20/22 14:03 Temperature Temperature Source Pulse Rate 103 H Respiratory Rate 20 H Blood Pressure 148/88 H Blood Pressure Mean 108 Pulse Ox 99 Oxygen Delivery Method Room Air Weight Weight: 92.079 kg Body Mass Index (BMI) 31.8 Physical Exam Const alert, oriented x3, no apparent distress and well nourished Constitutional Narrative: BS, upper middle-aged, white male, appears comfortable nontoxic, sister at bedside, appears comfortable, nontoxic General Appearance: cooperative HEENT normocephalic, head/scalp atraumatic, hearing grossly normal bilaterally and moist oral mucous membranes HEENT Narrative: Mallampati 3, no thrush Eyes PERRL, EOMs intact bilaterally and conjunctivae normal Eyes Narrative: No scleral icterus Neck no lymphadenopathy, supple, no JVD and no carotid bruits Neck Narrative: Trachea midline, no thyroid enlargement Resp normal respiratory effort, no retractions, no use of accessory muscles and clear to auscultation bilaterally Auscultation: Negative for rales, rhonchi or wheezes Cardio regular rate, regular rhythm, S1 normal heart sound, S2 normal heart sound, no murmurs, no rub, no gallops and no clicks GI normal to inspection, nondistended, normoactive bowel sounds, soft to palpation and non-tender Extremity no clubbing, cyanosis or edema Extremity Narrative: 2+ pedal pulses Skin no rashes or lesions noted, no wounds, skin turgor normal, no jaundice, no petechiae and no mottling Neuro oriented x3, CN's II-XII intact bilaterally, moves all extremities and no focal motor deficits Speech: speech normal Motor Exam: strength 5/5 throughout Psych affect normal Psych Narrative: Very pleasant, jovial, appropriately interactive Results Lab / Micro Data Attestation: I reviewed the patient's lab results. Result Diagrams: 07/20/22 13:55 07/20/22 13:55 Labs: Laboratory Results - last 24 hr 07/20/22 13:52: POC Glucose 138 H 07/20/22 13:55: WBC 9.9, RBC 4.10 L, Hgb 13.7, Hct 40.5, MCV 98.8 H, MCH 33.4 H, MCHC 33.8, RDW Std Deviation 47.5 H, RDW Coeff of Tanner 13.1, Plt Count 247, MPV 9.7, Immature Gran % (Auto) 0.400, Neut % (Auto) 64.3, Lymph % (Auto) 26.2, Pleasants % (Auto) 7.2, Eos % (Auto) 1.5, Baso % (Auto) 0.4, Absolute Neuts (auto) 6.4, Absolute Lymphs (auto) 2.59, Nucleated RBC % 0 07/20/22 13:55: PT 12.5, INR 0.9, APTT 26.7 07/20/22 13:55: Sodium 135 L, Potassium 3.4 L, Chloride 101, Carbon Dioxide 29.0, Anion Gap 5, BUN 13, Creatinine 1.16, Estim Creat Clear Calc 56.19, Est GFR (MDRD) Af Amer 80, Est GFR (MDRD) Non-Af 66, BUN/Creatinine Ratio 11.2, Glucose 136 H, Calcium 9.6, Troponin I High Sens [address] 07/20/22 13:48 IMPRESSION: Normal unenhanced CT scan of the brain. N.B. : The above Results were Read Back by Darrel Rayo MD to [facility] and understanding confirmed on 07/20/2022 14:04:26 (ET). Electronically Signed: Darrel Rayo MD at 14:05 EDT , ADDENDUM: 07/20/22 1412 IMPRESSION: Normal unenhanced CT scan of the brain. N.B. : The above Results were Read Back by Darrel Rayo MD to [facility] and understanding confirmed on 07/20/2022 14:04:26 (ET). Electronically Signed: Darrel Rayo MD at 14:05 EDT Reading Location ID and State: [facility] / [place] , Service support , Head/Neck CTA 07/20/22 13:55 IMPRESSION: Mild degree of calcific plaques at the origin of the right and left internal carotid arteries. N.B. : The above Results were Read Back by Darrel Rayo MD to [facility] and understanding confirmed on 07/20/2022 14:20:02 (ET). Electronically Signed: Darrel Rayo MD at 14:21 EDT , ADDENDUM: 07/20/22 1428 IMPRESSION: Mild degree of calcific plaques at the origin of the right and left internal carotid arteries. N.B. : The above Results were Read Back by Darrel Rayo MD to [facility] and understanding confirmed on 07/20/2022 14:20:02 (ET). Electronically Signed: Darrel Rayo MD at 14:21 EDT , Assessment & Plan Assessment/Plan (1) Dysarthria: (2) Expressive aphasia: (3) Right upper extremity numbness: (4) Hypokalemia: (5) Hyperglycemia: PLAN: Plan Dysarthria/expressive aphasia/right upper extremity paresthesias -Patient has had multiple episodes in the last 10 years but this is the first episode that included right upper extremity paresthesias -Patient is not on aspirin at baseline -Start baby aspirin -Start Plavix 75 mg daily and will continue dual antiplatelet therapy for 3 weeks after discharge then transition to aspirin alone -Start high intensity dose statin -Patient did have recent lipids in March 2022 and LDL was 99 at that time so will not check lipids at this time -he has had issues with statins causing myalgias and is currently on simvastatin 20 mg at baseline however in light of the above events I did discuss with him the need for at least short-term utilization of high intensity dose statin -Check hemoglobin A1c -MRI -Echocardiogram -NIH as per protocol -We will hold home antihypertensives for now allowing for permissive hypertension and use as needed's per protocol Hypokalemia -40 mill equivalents p.o. potassium -Repeat lab in a.m. -Check a magnesium level Hyperglycemia -Check hemoglobin A1c Hypertension -Patient takes hydrochlorothiazide lisinopril at home -Hold for now allowing for permissive hypertension with the above events -As needed's available -We will likely be able to restart home medication tomorrow Hyperlipidemia -Home simvastatin on hold given the above -Atorvastatin 80 mg ordered History of gout -Continue home health Depression -Continue home duloxetine History of tobacco abuse -Remote -No current issues Obesity -BMI 31.8 -Complicates treatment, prognosis, outcomes -Recommend weight loss DVT prophylaxis -Lovenox subcu daily CODE STATUS -Full code Charges/Coding Visit Charges Inpatient E&M: 61557 Init Hosp L2
[2022-07-20 16:57] LABS: Hemoglobin A1c 5.7 % (3.8-5.6)
[2022-07-20] MEDS: Potassium Chloride Oral Tablet 20 MEQ 40 MEQ PO (16:57)
[2022-07-20] MEDS: Atorvastatin Calcium 80 MG Tablet PO (20:57)
[2022-07-20] MEDS: Loratadine 10 MG Tablet PO (22:03)
[2022-07-21 01:00] VITALS: BP 133/71; PULSE 75; RESP 16; TEMP 36; O2SAT 99
[2022-07-21 05:00] VITALS: BP 120/62; PULSE 78; RESP 16; TEMP 35.7; O2SAT 98
[2022-07-21 08:39] LABS: Absolute Lymphocyte Count 1.97 X10^3/uL (0.83-4.51); Absolute Neutrophil Count 5.6 X10^3/uL (2.0-7.7); Basophil# 0.04 X10^3/uL; Basophil% 0.5 % (0-1); Eosinophil# 0.22 X10^3/uL; Eosinophils% 2.5 % (0-5); Hematocrit 38.4 % (40-54); Lymphocyte # 1.97 X10^3/ul (0.83-4.51); Lymphocyte % 22.6 % (19-41); Mean Corp Hgb Conc 33.9 g/dL (32-36); Mean Corpuscular Hgb 33.8 pg (27.0-32.0); Mean Corpuscular Volume 99.7 fL (80-94); Mean Platelet Vol. 9.9 fl (6.2-12.0); Monocyte# 0.82 X10^3/uL; Monocyte% 9.4 % (0-10); NRBC Flagged by Analyzer 0 % (0-5); Neutrophil # 5.62 X10^3/uL (2.7-7.7); Neutrophil % 64.3 % (47-70); Platelet Count 223 K/mm3 (150-450); RBC Distribution Width SD 47.4 fl (35.1-43.9); Red Blood Count 3.85 M/mm3 (4.6-6.2); White Blood Count 8.7 K/mm3 (4.4-11.0)
[2022-07-21 09:04] LABS: ALB/GLOB Ratio 1.1 RATIO (0.9-2.4); AST(SGOT) 28 U/L (15-37); Alanine Aminotransfer ALT/SGPT 43 U/L (16-61); Albumin, Serum 3.5 g/dL (3.2-5.0); Alkaline Phosphatase 49 U/L (45-117); Anion Gap 6 (5-15); BUN 14 mg/dL (7-18); BUN/Creat Ratio 13.2 RATIO (10-20); Chloride 105 mmol/L (98-107); Creatinine, Serum 1.06 mg/dL (0.70-1.30); EST Glomerular Filtration Rate 74 mL/min (>60); Est Glom Filt Rate - Afr Amer 89 mL/min (>60); Estimated Creatinine Clearance 61.49 ml/min; Globulin 3.1 g/dL (2.2-4.2); Glucose 110 mg/dL (74-106); Magnesium 2.5 mg/dL (1.6-2.6); Phosphorus 3.3 mg/dL (2.5-4.9); Potassium 4.1 mmol/L (3.5-5.1); Protein, Total 6.6 g/dL (6.4-8.2); Sodium Level 139 mmol/L (136-145); Thyroid Stim Hormone (TSH) 1.43 uIU/mL (0.358-3.74)
--- NOTE | 2022-07-21 09:27 | CASEMGMT ---
Social Work Pt was negative for a stroke, so PHQ-9 not completed. MARIA ESTHER Del Real
[2022-07-21 09:44] VITALS: BP 143/79; PULSE 64; RESP 16; TEMP 36.6; O2SAT 96
[2022-07-21] MEDS: Aspirin 81 MG TAB.CHEW PO (09:48)
[2022-07-21] MEDS: Clopidogrel Bisulfate 75 MG Tablet PO (09:49)
[2022-07-21] MEDS: Enoxaparin 40 MG/0.4 ML Syringe SC (09:49)
[2022-07-21] MEDS: DULoxetine Hcl 20 MG Capsule PO (09:49)
[2022-07-21] MEDS: Loratadine 10 MG Tablet PO (09:49)
[2022-07-21] MEDS: Allopurinol 300 MG Tablet PO (09:50)
--- NOTE | 2022-07-21 12:09 | PN.HOSP_ITS ---
Reason for Visit Reason for Visit: Diagnoses Hypokalemia (07/20/22) Anesthesia of skin (07/20/22) Aphasia (07/20/22) Dysarthria and anarthria (07/20/22) Hyperglycemia, unspecified (07/20/22) Subjective Subjective Symptoms resolved today, no acute complaints Objective Data Objective Data Vital Signs: Vital Signs Temp Pulse Resp BP Pulse Ox O2 Del Method 97.9 F 64 16 143/79 H 96 Room Air 07/21/22 09:44 07/21/22 09:44 07/21/22 09:44 07/21/22 09:44 07/21/22 09:44 07/21/22 09:44 Oxygen Delivery Method Room Air Weight: 90.8 kg Body Mass Index (BMI) 31.3 Intake & Output: Intake and Output for Last 24 Hours 07/19/22 07/20/22 07/21/22 23:59 23:59 23:59 Intake Total 1000 / 1000 Balance 1000 / 1000 Lab / Micro Data Result Diagrams: 07/21/22 08:00 07/21/22 08:00 Labs: Laboratory Results - last 24 hr 07/20/22 13:52: POC Glucose 138 H 07/20/22 13:55: WBC 9.9, RBC 4.10 L, Hgb 13.7, Hct 40.5, MCV 98.8 H, MCH 33.4 H, MCHC 33.8, RDW Std Deviation 47.5 H, RDW Coeff of Tanner 13.1, Plt Count 247, MPV 9.7, Immature Gran % (Auto) 0.400, Neut % (Auto) 64.3, Lymph % (Auto) 26.2, [place] % (Auto) 7.2, Eos % (Auto) 1.5, Baso % (Auto) 0.4, Absolute Neuts (auto) 6.4, Absolute Lymphs (auto) 2.59, Nucleated RBC % 0 07/20/22 13:55: PT 12.5, INR 0.9, APTT 26.7 07/20/22 13:55: Sodium 135 L, Potassium 3.4 L, Chloride 101, Carbon Dioxide 29.0, Anion Gap 5, BUN 13, Creatinine 1.16, Estim Creat Clear Calc 56.19, Est GFR (MDRD) Af Amer 80, Est GFR (MDRD) Non-Af 66, BUN/Creatinine Ratio 11.2, Glucose 136 H, Calcium 9.6, Troponin I High Sens 10 07/20/22 13:55: Hemoglobin A1c 5.7 H 07/21/22 08:00: WBC 8.7, RBC 3.85 L, Hgb 13.0, Hct 38.4 L, MCV 99.7 H, MCH 33.8 H, MCHC 33.9, RDW Std Deviation 47.4 H, RDW Coeff of Tanner 13.0, Plt Count 223, MPV 9.9, Immature Gran % (Auto) 0.700, Neut % (Auto) 64.3, Lymph % (Auto) 22.6, [place] % (Auto) 9.4, Eos % (Auto) 2.5, Baso % (Auto) 0.5, Absolute Neuts (auto) 5.6, Absolute Lymphs (auto) 1.97, Nucleated RBC % 0 07/21/22 08:00: Sodium 139, Potassium 4.1, Chloride 105, Carbon Dioxide 28.0, Anion Gap 6, BUN 14, Creatinine 1.06, Estim Creat Clear Calc 61.49, Est GFR (MDRD) Af Amer 89, Est GFR (MDRD) Non-Af 74, BUN/Creatinine Ratio 13.2, Glucose 110 H, Calcium 9.0, Phosphorus 3.3, Magnesium 2.5, Total Bilirubin 0.40, AST 28, ALT 43, Alkaline Phosphatase 49, Total Protein 6.6, Albumin 3.5, Globulin 3.1, Albumin/Globulin Ratio 1.1, TSH 1.43 Radiography Diagnostic Testing: Radiology Impression Brain CT 07/20/22 13:48 IMPRESSION: Normal unenhanced CT scan of the brain. N.B. : The above Results were Read Back by Darrel Rayo MD to [facility] and understanding confirmed on 07/20/2022 14:04:26 (ET). Electronically Signed: Darrel Rayo MD at 14:05 EDT , ADDENDUM: 07/20/22 1412 IMPRESSION: Normal unenhanced CT scan of the brain. N.B. : The above Results were Read Back by Darrel Rayo MD to [facility] and understanding confirmed on 07/20/2022 14:04:26 (ET). Electronically Signed: Darrel Rayo MD at 14:05 EDT , Head/Neck CTA 07/20/22 13:55 IMPRESSION: Mild degree of calcific plaques at the origin of the right and left internal carotid arteries. N.B. : The above Results were Read Back by Darrel Rayo MD to [facility] and understanding confirmed on 07/20/2022 14:20:02 (ET). Electronically Signed: Darrel Rayo MD at 14:21 EDT Reading Location ID and State: [facility] / [place] , Service support , ADDENDUM: 07/20/22 1428 IMPRESSION: Mild degree of calcific plaques at the origin of the right and left internal carotid arteries. N.B. : The above Results were Read Back by Darrel Rayo MD to [facility] and understanding confirmed on 07/20/2022 14:20:02 (ET). Electronically Signed: Darrel Rayo MD at 14:21 EDT , Chest X-Ray 07/20/22 14:53 IMPRESSION: Mild cardiomegaly. The lungs are clear. Electronically Signed: Darrel Rayo MD at 15:04 EDT , Brain MRI 07/20/22 14:58 IMPRESSION: Mild to moderate chronic microvascular ischemic change detailed above. Electronically Signed: Ezra Prather MD, TAVO at 19:31 EDT , Physical Exam Narrative General: Alert, oriented, no apparent distress HEENT: Atraumatic, normocephalic Eyes: Anicteric, normal conjunctiva, extraocular movements grossly intact Neck: Supple Respiratory: Clear to auscultation bilaterally, normal respiratory effort Cardiovascular: Regular rate and rhythm GI: Soft, nontender, nondistended Extremities: No edema Musculoskeletal: Moving all extremities Neuro: No overt focal neurological deficits Skin: No rashes appreciated Psych: Cooperative Assessment & Plan Assessment/Plan (1) Dysarthria: (2) Expressive aphasia: (3) Right upper extremity numbness: (4) Hypokalemia: (5) Hyperglycemia: PLAN: Plan Dysarthria/expressive aphasia/right upper extremity paresthesias?resolved -Patient has had multiple episodes in the last 10 years but this is the first episode that included right upper extremity paresthesias -Patient is not on aspirin at baseline -Start baby aspirin -Start Plavix 75 mg daily and will continue dual antiplatelet therapy for 3 weeks after discharge then transition to aspirin alone -Start high intensity dose statin -Patient did have recent lipids in March 2022 and LDL was 99 at that time so will not check lipids at this time -he has had issues with statins causing myalgias and is currently on simvastatin 20 mg at baseline however in light of the above events I did discuss with him the need for at least short-term utilization of high intensity dose statin -Check hemoglobin A1c -MRI -Echocardiogram -NIH as per protocol -We will hold home antihypertensives for now allowing for permissive hypertension and use as needed's per protocol -07/21: MRI demonstrated mild to moderate chronic microvascular ischemic changes and multiple foci of increased signal intensity. SOC consulted given the duration and worsening of the symptoms over time and no revealing factor noted. Spoke with teleneurology who feels these are TIAs and given his ABCD risk of 4 they recommended DAPT for 21 days followed by aspirin daily, 30-day monitor on discharge with possible longer term after if this is unrevealing as well as a sleep study if the echo was unremarkable. Echo was completed and awaiting the read. We will DC this afternoon if no abnormalities on echocardiogram Hypokalemia?resolved Hyperglycemia -Check hemoglobin A1c -07/21: A1c 5.7, strict risk factor modification and lifestyle and diet manageme nt. Follow-up with PCP Hypertension -Patient takes hydrochlorothiazide lisinopril at home -Hold for now allowing for permissive hypertension with the above events -As needed's available -We will likely be able to restart home medication tomorrow -07/21: Had slightly low sodium on admission and at home he takes lisinopril/hydrochlorothiazide combination. Will resume lisinopril 10 but hold on hydrochlorothiazide at this time Hyperlipidemia -Home simvastatin on hold given the above -Atorvastatin 80 mg ordered History of gout -Continue home health Depression -Continue home duloxetine History of tobacco abuse -Remote -No current issues Obesity -BMI 31.8 -Complicates treatment, prognosis, outcomes -Recommend weight loss DVT prophylaxis -Lovenox subcu daily CODE STATUS -Full code Charges/Coding Visit Charges Inpatient E&M: 32406 Subs Hosp L2
--- NOTE | 2022-07-21 12:10 | CASEMGMT ---
MARCO A CM: MARCO A CANNON in to complete WEAVER form at this time.? RN KASSANDRA explained WEAVER for to patient, patient voiced understanding.? Patient signed WEAVER Form and filed in chart.? Patient provided with copy of signed WEAVER form.? Patient had no further questions or concerns.?? DC Planning: Pt denies any needs at this time and states he has family/friends available to assist him if needed. Angela Lopez RN CM
[2022-07-21 12:53] VITALS: BMI 31.3
[2022-07-21] MEDS: Lisinopril 10 MG Tablet PO (12:57)
--- NOTE | 2022-07-21 15:08 | DS.PCM_ITS ---
Providers Date of Admission: 07/20/22 Date of Discharge: 07/21/22 Primary Care Physician: Dr. Raisa Chu MD Reason For Visit: EXPRESSIVE APHASIA W/ R UE NUMBNESS, SLURRING SPEE Diagnosis Discharge Diagnosis (1) Dysarthria: Status: Acute Code(s): R47.1 - Dysarthria and anarthria (2) Expressive aphasia: Status: Acute Code(s): R47.01 - Aphasia (3) Right upper extremity numbness: Status: Acute Code(s): R20.0 - Anesthesia of skin (4) Hypokalemia: Status: Acute Code(s): E87.6 - Hypokalemia (5) Hyperglycemia: Status: Acute Code(s): R73.9 - Hyperglycemia, unspecified Plan #TIA #Dysarthria/expressive aphasia/right upper extremity paresthesias?resolved #Hypokalemia?resolved #Hyperglycemia A1c 5.7 #Hypertension #Hyperlipidemia #History of gout #Depression #History of tobacco abuse #Obesity Medications at Discharge Home Medications simvastatin 20 mg tablet 20 mg PO DAILY #90 tabs 02/03/21 allopurinol 300 mg tablet 300 mg PO DAILY #90 tabs 11/22/21 duloxetine 20 mg capsule,delayed release 20 mg PO DAILY #90 caps 11/22/21 valacyclovir 500 mg tablet 500 mg PO DAILY #90 tabs 05/22/22 aspirin 81 mg chewable tablet 81 mg PO BREAKFAST 30 days #30 tabs 07/21/22 clopidogrel 75 mg tablet 75 mg PO DAILY 21 days #21 tabs 07/21/22 lisinopril 10 mg tablet 10 mg PO DAILY 30 days #30 tabs 07/21/22 Hospital Course Procedures Transthoracic echo and - Summary of Care Provided Minutes Spent on Discharge: 35 Hospital Course: Deejay Acosta is a 71-year-old male with a history of gout and hypertension who presented to [facility] 07/20/2022 with sudden onset expressive aphasia/dysarthria/right upper extremity paresthesias. 10 years ago he had similar issues with speech and was told it was a TIA but nothing further was done. He has had several more episodes over the past 5 years but this is the first time he has had an upper extremity paresthesia prompting him to return to the ED. Stroke team was called as his symptoms started at 1245 and lasted for about an hour and he presented to the ED within the timeframe but inpatient work-up recommended for TIA. CTA with mild degree of calcified plaque at the origin of the right and left internal carotid arteries estimated less than 50%. On 07/21 MRI demonstrated mild to moderate chronic microvascular ischemic changes and multiple foci of increased signal intensity. SOC consulted given the duration and worsening of the symptoms over time and no revealing factor noted. Spoke with teleneurology who feels these are TIAs and given his ABCD risk of 4 they recommended DAPT for 21 days followed by aspirin daily, 30-day monitor on discharge with possible longer term after if this is unrevealing as well as a sleep study. Echo obtained and no PFO. Pt w/ no complaints on day of discharge. Verbally explained instructions and instructions will be printed and given to pt. D/c instructions as below: -You indicated that you are sensitive to statins and have difficulty take your simvastatin every other day due to muscle aching.? This is why you have not been discharged on atorvastatin.? Please discuss with your primary care physician upon discharge -Additionally your sodium was slightly low on admission so your lisinopril/hydr ochlorothiazide has been held and lisinopril 10 mg prescription will be sent to your pharmacy.? Would advise discussing additional options with your prescribing physician.? Do not take both of these medications at the same time -You will need to take aspirin and Plavix for 21 days on discharge and afterwards you will need to take 81 mg of aspirin daily thereafter -You will be discharged with instructions for a 30-day event monitor they were continuously to monitor for any abnormal heart rhythms -Please follow-up with neurology upon discharge, please call Dr. Tam's office upon discharge to schedule hospital follow-up appointment (ph [phone]) -It is advised that you discuss possible sleep study with your primary care physician on discharge -Please call your primary care provider's office upon discharge to schedule a hospital follow up within 1 week. -For any concerning signs or symptoms please call 911 or proceed to the nearest emergency department Physical Exam Narrative General: Alert, oriented, no apparent distress HEENT: Atraumatic, normocephalic Eyes: Anicteric, normal conjunctiva, extraocular movements grossly intact Neck: Supple Respiratory: Clear to auscultation bilaterally, normal respiratory effort Cardiovascular: Regular rate and rhythm GI: Soft, nontender, nondistended Extremities: No edema Musculoskeletal: Moving all extremities Neuro: No overt focal neurological deficits Skin: No rashes appreciated Psych: Cooperative Weight / BMI Weight Weight: 90.8 kg Body Mass Index (BMI) 31.3 ABG / Lab / Microbiology Data Result Diagrams: 07/21/22 08:00 07/21/22 08:00 Laboratory: Laboratory Results - last 24 hr 07/20/22 13:55: Hemoglobin A1c 5.7 H 07/21/22 08:00: WBC 8.7, RBC 3.85 L, Hgb 13.0, Hct 38.4 L, MCV 99.7 H, MCH 33.8 H, MCHC 33.9, RDW Std Deviation 47.4 H, RDW Coeff of Tanner 13.0, Plt Count 223, MPV 9.9, Immature Gran % (Auto) 0.700, Neut % (Auto) 64.3, Lymph % (Auto) 22.6, King % (Auto) 9.4, Eos % (Auto) 2.5, Baso % (Auto) 0.5, Absolute Neuts (auto) 5.6, Absolute Lymphs (auto) 1.97, Nucleated RBC % 0 07/21/22 08:00: Sodium 139, Potassium 4.1, Chloride 105, Carbon Dioxide 28.0, Anion Gap 6, BUN 14, Creatinine 1.06, Estim Creat Clear Calc 61.49, Est GFR (MDRD) Af Amer 89, Est GFR (MDRD) Non-Af 74, BUN/Creatinine Ratio 13.2, Glucose 110 H, Calcium 9.0, Phosphorus 3.3, Magnesium 2.5, Total Bilirubin 0.40, AST 28, ALT 43, Alkaline Phosphatase 49, Total Protein 6.6, Albumin 3.5, Globulin 3.1, Albumin/Globulin Ratio 1.1, TSH 1.43 Radiography Diagnostic Testing: Radiology Impression Brain MRI 07/20/22 14:58 IMPRESSION: Mild to moderate chronic microvascular ischemic change detailed above. Electronically Signed: Ezra Prather MD, TAVO at 19:31 EDT , Echocardiogram 07/20/22 14:58 Interpretation Summary The estimated ejection fraction is 65 %. Mild (1+) mitral valve insufficiency. Trivial aortic valve insufficiency. Ordering Physician: Kala Cortés Referring Physician: Raisa Chu M.D. Performed By: Tessa Moctezuma RCS D/C Instructions Discharge Diet: - (DASH diet) Meaningful Use Info Meaningful Use Diagnoses (Choose all that apply): None applicable Discharge Plan Admission Admit Date/Time: 07/20/22 14:48 Primary Reason for Your Visit: Slurred speech Attending Provider: Jolie Mckinley Primary Care Provider: Raisa Chu Consulting Providers: Kala Cortés Instructions Patient Instructions: TIA Dc, ED Hypertension, Established Additional Instructions / Restrictions: DISCHARGE INSTRUCTIONS PLEASE READ *Please take this with you to your next doctors appointment* -You indicated that you are sensitive to statins and have difficulty take your simvastatin every other day due to muscle aching. This is why you have not been discharged on atorvastatin. Please discuss with your primary care physician upon discharge -Additionally your sodium was slightly low on admission so your hernando nopril/hydrochlorothiazide has been held and lisinopril 10 mg prescription will be sent to your pharmacy. Would advise discussing additional options with your prescribing physician. Do not take both of these medications at the same time -You will need to take aspirin and Plavix for 21 days on discharge and afterwards you will need to take 81 mg of aspirin daily thereafter -You will be discharged with instructions for a 30-day event monitor they were continuously to monitor for any abnormal heart rhythms -Please follow-up with neurology upon discharge, please call Dr. Tam's office upon discharge to schedule hospital follow-up appointment ) -It is advised that you discuss possible sleep study with your primary care physician on discharge -Please call your primary care provider's office upon discharge to schedule a hospital follow up within 1 week. -For any concerning signs or symptoms please call 911 or proceed to the nearest emergency department Discharge Orders/Prescriptions Prescriptions: New clopidogrel 75 mg Tablet 75 mg PO DAILY 21 Days Qty: 21 0RF lisinopril 10 mg Tablet 10 mg PO DAILY 30 Days Qty: 30 0RF aspirin 81 mg Tablet,Chewable 81 mg PO BREAKFAST 30 Days Qty: 30 0RF Continued simvastatin 20 mg tablet 20 mg PO DAILY Qty: 90 3RF duloxetine 20 mg capsule,delayed release(DR/EC) 20 mg PO DAILY Qty: 90 3RF allopurinol 300 mg tablet 300 mg PO DAILY Qty: 90 3RF valacyclovir 500 mg tablet 500 mg PO DAILY Qty: 90 3RF Discontinued lisinopril-hydrochlorothiazide 10-12.5 mg tablet 1 tab PO DAILY Qty: 90 3RF Other Ambulatory Orders: 30 Day Event Recorder Preventi (Urgent) Timeframe: 1 Day Facility: [facility] - Location: Cardiovascular Services Ordered By: Dr. Jolie Mckinley Referrals / Follow Up: Raisa Chu MD [Primary Care Provider] - Within 1 Week Rommel Tam MD [Non-Staff -Ordering Privileges] - See Referral Note (Please follow-up with neurology upon discharge, please call Dr. Tam's office upon discharge to schedule hospital follow-up appointment (ph [phone])) Disposition Disposition (needs filled in before D/C Order can be placed): Home, Self Care Charges/Coding Visit Charges Inpatient E&M: 98578 Disch Hosp >30min
[2022-07-21 15:34] VITALS: BP 149/89; PULSE 86; RESP 16; TEMP 36.3; O2SAT 96
[2022-07-21 15:41] VITALS: BP 149/89; PULSE 86; RESP 16; TEMP 36.3; O2SAT 96
[2022-07-21 15:43] VITALS: BMI 31.3
== END 2022-07-21 16:04 | disposition home or self-care (01) ==
LOC: ED 14:56 → PCU 15:32
PROVIDERS: Admitting Provider Internal Medicine; Emergency Provider Emergency Medicine; PCP Internal Medicine; Visit Provider Internal Medicine
DX: R47.1 Dysarthria and anarthria (principal); R73.9 Hyperglycemia, unspecified; R47.81 Slurred speech; E87.6 Hypokalemia; E87.1 Hypo-osmolality and hyponatremia; R47.01 Aphasia; R20.0 Anesthesia of skin; I10 Essential (primary) hypertension; E78.00 Pure hypercholesterolemia, unspecified; M10.9 Gout, unspecified; E66.9 Obesity, unspecified; Z68.31 Body mass index [BMI] 31.0-31.9, adult; Z87.891 Personal history of nicotine dependence; F32.A Depression, unspecified; Z79.899 Other long term (current) drug therapy; I45.2 Bifascicular block; R94.31 Abnormal electrocardiogram [ECG] [EKG]; I08.3 Combined rheumatic disorders of mitral, aortic and tricuspid valves; R29.701 NIHSS score 1
CPT/HCPCS: 36415; 70450; 70496; 70498; 70551; 71045; 80048; 80053; 82962; 83036; 83735; 84100; 84443; 84484; 85025; 85610; 85730; 93005; 93306; 94668; 94762; 96372; 99221; 99252; 99285; Q9967; A4216; G0378; G0463

== ENCOUNTER → 2023-05-31 | Outpatient (CLI) | payer MEDICARE, OTHER, SELFPAY ==
--- NOTE | 2023-05-31 09:59 | CDU_ITS ---
Reason For Study: DIZZINESS Rt. Velocities/BP Lt. Velocities/BP Prox CCA 146.7/13.3 cm/sec. Prox CCA 167.3/24.8 cm/sec. Mid CCA 92.4/13.9 cm/sec. Mid CCA 107.6/17.9 cm/sec. Dist CCA 77.2/15.8 cm/sec. Dist CCA 95.3/19.2 cm/sec. Prox ICA 48.1/15.0 cm/sec. Prox ICA 52.6/10.9 cm/sec. Mid ICA 60.4/10.1 cm/sec. Mid ICA 90.8/21.5 cm/sec. Dist ICA 77.2/19.5 cm/sec. Dist ICA 93.0/19.3 cm/sec. Rt. ICA/CCA = 77.2/92.4=0.8. Lt. ICA/CCA = 93.0/107.6=0.9. Prox ECA 92.0/9.7 cm/sec. Prox ECA 117.0/17.6 cm/sec. Rt. Vert. 52.8/11.2 cm/sec. Lt. Vert. 61.0/18.5 cm/sec. Right Extracranial There is homogeneous, smooth atherosclerotic plaque noted in the right common carotid artery. There is heterogeneous, irregular atherosclerotic plaque noted in the right internal carotid artery. There is intimal thickening but no significant atherosclerotic plaque noted in the right external carotid artery. Antegrade flow is noted in the right vertebral artery. Left Extracranial There is homogeneous, smooth atherosclerotic plaque noted in the left common carotid artery. There is homogeneous, smooth atherosclerotic plaque noted in the left internal carotid artery. There is no significant atherosclerotic plaque noted in the left external carotid artery. Antegrade flow is noted in the left vertebral artery. Procedure Carotid Duplex [id number]. This is a Carotid Duplex examination using B-mode, color flow and specral Doppler. Exam performed in department. VL/Carotid Duplex Ultrasound Interpretation Summary Irregular calcific plaque to a mild degree at the proximal right internal carot id artery with less than 50% stenosis Less than 50% stenosis right external carotid artery Smooth plaque at the proximal left internal carotid artery with less than 50% s tenosis Less than 50% stenosis left external carotid artery Patent and antegrade vertebral arteries bilaterally Ordering Physician: Kam Urbina Referring Physician: Raisa Chu Performed By: Tameka Hart, KADEN, RVT
== END | disposition home or self-care (01) ==
LOC: CVS 09:57
PROVIDERS: PCP Internal Medicine; Referring Provider Internal Medicine Cardiovascular Disease; Visit Provider Internal Medicine Cardiovascular Disease
DX: R42 Dizziness and giddiness (principal)
CPT/HCPCS: 93880

== ENCOUNTER → 2024-01-01 | Outpatient (CLI) | payer MEDICARE, OTHER, SELFPAY ==
[2024-01-01 12:42] LABS: Absolute Lymphocyte Count 2.09 X10^3/uL (0.83-4.51); Absolute Neutrophil Count 7.8 X10^3/uL (2.0-7.7); Basophil# 0.06 X10^3/uL; Basophil% 0.5 % (0-1); Eosinophil# 0.18 X10^3/uL; Eosinophils% 1.6 % (0-5); Hematocrit 44.4 % (40-54); Hemoglobin 15.2 g/dL (13.0-16.5); Lymphocyte # 2.09 X10^3/ul (0.83-4.51); Mean Corp Hgb Conc 34.2 g/dL (32-36); Mean Corpuscular Hgb 33.2 pg (27.0-32.0); Mean Corpuscular Volume 96.9 fL (80-94); Mean Platelet Vol. 10.4 fl (6.2-12.0); Monocyte% 7.3 % (0-10); NRBC Flagged by Analyzer 0 % (0-5); Neutrophil # 7.81 X10^3/uL (2.7-7.7); Neutrophil % 71.1 % (47-70); Platelet Count 243 K/mm3 (150-450); RBC Distribution Width CV 12.8 % (11.6-14.6); RBC Distribution Width SD 45.9 fl (35.1-43.9); Red Blood Count 4.58 M/mm3 (4.6-6.2)
[2024-01-01 12:51] LABS: Vitamin B12 527 pg/mL (211-911); Vitamin D,25 Hydroxy 33.9 ng/mL
[2024-01-01 13:18] LABS: ALB/GLOB Ratio 1.2 RATIO (0.9-2.4); AST(SGOT) 27 U/L (15-37); Alanine Aminotransfer ALT/SGPT 46 U/L (16-61); Albumin, Serum 4.2 g/dL (3.2-5.0); Alkaline Phosphatase 66 U/L (45-117); Anion Gap 8 (5-15); BUN 13 mg/dL (7-18); BUN/Creat Ratio 11.7 RATIO (10-20); Calcium,Total 9.9 mg/dL (8.5-10.1); Chloride 104 mmol/L (98-107); Cholesterol 214 mg/dL (200); Creatinine, Serum 1.11 mg/dL (0.70-1.30); EST Glomerular Filtration Rate 69 mL/min (>60); Est Glom Filt Rate - Afr Amer 84 mL/min (>60); Free T3 3.3 pg/mL (2.18-3.98); Globulin 3.5 g/dL (2.2-4.2); Glucose 119 mg/dL (74-106); High Density Lipoprotein 69 mg/dL; PSA,Total - Annual Screen 3.54 ng/mL (0.00-4.00); Protein, Total 7.7 g/dL (6.4-8.2); Sodium Level 139 mmol/L (136-145); T4 Free Direct 0.93 ng/dL (0.76-1.46); Triglycerides 133 mg/dL; Very Low Density Lipoprotein 27 mg/dL (5-40)
[2024-01-01 13:50] LABS: Hemoglobin A1c 5.7 % (3.8-5.6)
== END | disposition home or self-care (01) ==
LOC: BIMLAB 09:17
PROVIDERS: PCP Internal Medicine; Referring Provider Internal Medicine; Visit Provider Internal Medicine
DX: I48.0 Paroxysmal atrial fibrillation (principal); Z86.73 Personal history of transient ischemic attack (TIA), and cerebral infarction without residual deficits; F90.9 Attention-deficit hyperactivity disorder, unspecified type; R73.9 Hyperglycemia, unspecified; I10 Essential (primary) hypertension; E78.5 Hyperlipidemia, unspecified; Z13.220 Encounter for screening for lipoid disorders; E53.8 Deficiency of other specified B group vitamins; E55.9 Vitamin D deficiency, unspecified; Z12.5 Encounter for screening for malignant neoplasm of prostate
CPT/HCPCS: 36415; 80053; 80061; 82306; 82607; 83036; 83735; 84153; 84439; 84443; 84481; 85025; G0103

== ENCOUNTER → 2024-04-29 | Outpatient (CLI) | payer MEDICARE, SELFPAY ==
[2024-04-29 12:59] LABS: PSA,Total- Diagnostic 2.15 ng/mL (0.0-4.0)
[2024-05-04 10:07] LABS: Testosterone, Free 12.69 ng/dL (5.00-21.00); Testosterone, Total 488 ng/dL (264-916)
== END | disposition home or self-care (01) ==
LOC: BIMLAB 10:11
PROVIDERS: PCP Internal Medicine; Referring Provider Internal Medicine; Visit Provider Internal Medicine
DX: I10 Essential (primary) hypertension (principal); I48.0 Paroxysmal atrial fibrillation; Z86.73 Personal history of transient ischemic attack (TIA), and cerebral infarction without residual deficits; N52.9 Male erectile dysfunction, unspecified; R97.20 Elevated prostate specific antigen [PSA]
CPT/HCPCS: 36415; 84153; 84402; 84403